=== PATIENT | male | born 1945 | race Caucasian/White ===

== ENCOUNTER 2018-05-10 09:31 | Emergency (ER) | payer MEDICARE, BC ==
--- NOTE | 2018-05-10 09:46 | UC ---
Throat Pain/Nasal Geo HPI - HPI Summary HPI Summary: 72 yo male presents with sinus pain/pressure/congestion, post nasal drip, and dry cough that started yesterday. He tells me that he has a PMHx of heart troubles requiring a pacemaker and that his has a lot of health issues and he is concerned about 1) himself getting worse 2) getting his ill. He has not taken anything OTC for his symptoms. He does not currently smoke, but he used to years ago. Denies fever, chills, SOB, chest pain. - History of Current Complaint Stated Complaint: COLD SYMP Time Seen by Provider: 05/10/18 09:39 Hx Obtained From: Patient Onset/Duration: Sudden Onset Severity: Mild Pain Intensity: 3 Pain Scale Used: 0-10 Numeric Cough: Nonproductive - Allergies/Home Medications Allergies/Adverse Reactions: Allergies Allergy/AdvReac Type Severity Reaction Status Date / Time No Known Allergies Allergy Verified 02/01/12 18:05 Home Medications: Home Medications Cholecalciferol (Vitamin D3) [Vitamin D3] 4,000 units PO DAILY 05/10/18 [ History Confirmed 05/10/18] Omeprazole 20 mg PO DAILY PRN 05/10/18 [History Confirmed 05/10/18] PMH/Surg Hx/FS Hx/Imm Hx Endocrine History: Dyslipidemia Cardiovascular History: Cardiac Disease, Hypertension, Pacemaker/ICD Respiratory History: COPD, Asthma - Surgical History Surgical History: Yes Surgery Procedure, Year, and Place: pacemaker and stent 2010; hernia surgery x 2 - Family History Known Family History: Positive: Cardiac Disease, Hypertension, Respiratory Disease - Social History Lives: With Family Alcohol Use: Occasionally Substance Use Type: None Smoking Status (MU): Former Smoker Review of Systems All Other Systems Reviewed And Are Negative: Yes Constitutional: Positive: Negative Skin: Positive: Negative Eyes: Positive: Negative ENT: Positive: Nasal Discharge, Sinus Congestion, Sinus Pain/Tenderness Respiratory: Positive: Cough Cardiovascular: Positive: Negative Gastrointestinal: Positive: Negative Neurovascular: Positive: Negative Neurological: Positive: Negative Psychological: Positive: Negative Physical Exam - Summary Physical Exam Summary: GENERAL: NAD. WDWN. No pain distress. SKIN: No rashes, sores, lesions, or open wounds. HEENT: Head: AT/NC Eyes: Conjunctiva clear without inflammation or discharge. Ears: Hearing grossly normal. TMs intact, no bulging, erythema, or edema. Nose: Nasal mucosa mildly swollen and erythematous without discharge. NTTP maxillary/frontal sinuses. Positive post nasal drip Throat: Posterior oropharynx without exudates, erythema, or tonsillar enlargement. Uvula midline. NECK: Supple. Nontender. No lymphadenopathy. CHEST: Mild wheezing throughout. No r/r. No accessory muscle use. Breathing comfortably and in no distress. CV: RRR. Pulses intact. Cap refill <2seconds NEURO: Alert. PSYCH: Age appropriate behavior. Triage Information Reviewed: Yes Vital Signs: Vital Signs: Temp Pulse Resp BP Pulse Ox 97.8 F 81 20 155/86 96 05/10/18 09:40 05/10/18 09:40 05/10/18 09:40 05/10/18 09:40 05/10/18 09:40 Vital Signs Reviewed: Yes Throat Pain/Nasal Course/Dx - Course Course Of Treatment: Sinusitis. His symptoms could very likely be viral and improve with time and OTC medications, however given his comorbidities and his 's immunocompromised status - pt prefers to be on anbx at this time. - Differential Dx/Diagnosis Provider Diagnosis: Sinusitis Discharge - Sign-Out/Discharge Documenting (check all that apply): Patient Departure All imaging exams completed and their final reports reviewed: No Studies - Discharge Plan Condition: Stable Disposition: HOME Prescriptions: DOXYcycline CAP(*) [DOXYcycline 100MG CAP(*)] 100 mg PO BID #14 cap Patient Education Materials: Sinusitis (ED) Referrals: Irlanda Choudhary RN [Primary Care Provider] - Additional Instructions: If you develop a fever, shortness of breath, chest pain, new or worsening symptoms - please call your PCP or go to the ED. Your blood pressure was high at todays visit. Please see your primary provider within 4 weeks for recheck and re-evaluation. - Billing Disposition and Condition Condition: STABLE Disposition: Home
[2018-05-10 09:51] VITALS: BP 155/86
== END 2018-05-10 10:05 | disposition home or self-care (01) ==
LOC: UCEAST 09:31
DX: J32.9 Chronic sinusitis, unspecified (principal); E78.5 Hyperlipidemia, unspecified; I25.10 Atherosclerotic heart disease of native coronary artery without angina pectoris; I10 Essential (primary) hypertension; Z95.810 Presence of automatic (implantable) cardiac defibrillator; Z79.01 Long term (current) use of anticoagulants; J44.9 Chronic obstructive pulmonary disease, unspecified; Z87.891 Personal history of nicotine dependence
CPT/HCPCS: 99212; G0463

== ENCOUNTER → 2019-02-12 07:21 | Day surgery (SDC) | payer MEDICARE, BC ==
[~2019-02-12 07:21] MED LIST: Buffered Lidocaine 1% SYRIN* 1 ML/SYRINGE INTRADERM ONE; Lactated Ringers 1000 ML Bag* 1,000 ML IV SCH; Lidocaine 1% w EPI 1:100,000* MDV 20 ML VIAL ONE; Midazolam* 1 MG/ML 2 ML VIAL (2 MG) ONE; Mineral Oil Sterile, TOPICAL* 25 ML BTL ONE; Propofol* 10 MG/ML 20 ML BTL ONE; ceFAZolin 2 GM in NS PREMIX(*) 2 GM/100 ML BAG IVPB ONE; fentaNYL* 50 MCG/ML 2 ML VIAL (100 MCG VIAL) ONE
[2019-02-12 12:54] VITALS: BP 126/70
== END | disposition home or self-care (01) ==
LOC: OR 07:21
PROVIDERS: ATTEND Plastic Surgery
DX: C44.319 Basal cell carcinoma of skin of other parts of face (principal); J44.9 Chronic obstructive pulmonary disease, unspecified; I48.0 Paroxysmal atrial fibrillation; I10 Essential (primary) hypertension; I25.10 Atherosclerotic heart disease of native coronary artery without angina pectoris; Z95.5 Presence of coronary angioplasty implant and graft; Z95.0 Presence of cardiac pacemaker; Z85.828 Personal history of other malignant neoplasm of skin; E78.5 Hyperlipidemia, unspecified; K21.9 Gastro-esophageal reflux disease without esophagitis; Z79.01 Long term (current) use of anticoagulants; Z87.891 Personal history of nicotine dependence
CPT/HCPCS: 88305; 88331; 88332; A9270-GY; J0690; J2250; J2704; J3010

== ENCOUNTER 2019-02-27 12:46 | Emergency (ER) | payer MEDICARE, BC ==
--- OUTSIDE RECORDS SUMMARY | 2019-02-27 12:55 | XMS REPORT | Continuity of Care Document ---
:1945 External Reference #:[id number] Author Name Irlanda Oneil M.D. (transmitted by agent of provider Alia Dan) Address [address] [place] [address] Care Team Providers Name Role Phone Anita Gregory N.P. 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 Onset: 03/03/2013 Atrial fibrillation Irlanda Oneil M.D. Onset: 03/03/2013 Benign essential hypertension Irlanda Oneil M.D. Onset: 03/03/2013 Pure hypercholesterolemia Irlanda Oneil M.D. Onset: 03/03/2013 Cardiac pacemaker in situ Irlanda Oneil M.D. Onset: 03/03/2013 Dyspnea Irlanda Oneil M.D. Onset: 03/03/2013 Chronic obstructive lung disease Irlanda Oneil M.D. Onset: 04/27/2014 Mixed hyperlipidemia Irlanda Oneil M.D. Onset: 10/17/2015 Paroxysmal atrial fibrillation Irlanda Oneil M.D. Onset: 10/17/2015 Social History Type Date Description Comments Sex Unknown Tobacco Use Start: Unknown End: Former Cigarette Smoker Unknown Smoking Status Reviewed: 12/29/18 Former Cigarette Smoker ETOH Use Denies alcohol use Tobacco Use Start: Unknown End: Patient is a former quit in 2009 Unknown smoker Recreational Drug Use Never Used Drugs Exercise Type/Frequency Does not exercise Allergies, Adverse Reactions, Alerts Active Allergies Reaction Severity Comments Date NKDA 04/02/2014 Bee Sting 03/03/2013 Medications Active Medications SIG Qnty Indications Ordering Date Provider Xopenex HFA 2 puffs as needed 1units R06.2 Irlanda Oneil, 03/16/2013 45mcg/Act M.D. Aerosol Sotalol HCL 1 and 1/2 tabs by 270tabs Irlanda Oneil, 10/08/2012 80mg mouth twice a day M.D. Tablets Amlodipine Besylate 1 by mouth every 90tabs Irlanda Oneil, 08/26/2012 5mg day M.D. Tablets Atorvastatin Calcium 1 tab by mouth at 90tabs Irlanda Oneil, 12/25/2011 bedtime M.D. 20mg Tablets Aspirin 1 po qd 30tabs Unknown 81mg Tablets DR Oxygen 2 l nc at bedtime Unknown Misc Advair Diskus Inhale One puff Unknown By Mouth Twice A 250-50mcg/Dose Day Aerosol Warfarin Sodium Take One Tablet Unknown 4mg By Mouth Every Tablets Day as Directed Immunizations Description No Information Available Vital Signs Date Vital Result Comment 12/29/2018 3:38pm Height 67.5 inches 5'7.50" Weight 197.00 lb with shoes Heart Rate 56 /min BP Systolic Sitting 112 mmHg Lue reg cuff BP Diastolic Sitting 70 mmHg Lue reg cuff BP Systolic Standing 120 mmHg Lue reg cuff BP Diastolic Standing 74 mmHg Lue reg cuff Respiratory Rate 16 /min BMI (Body Mass Index) 30.4 kg/m2 02/10/2018 2:29pm Height 67.5 inches 5'7.50" Weight 198.25 lb without shoes Heart Rate 80 /min BP Systolic Sitting 120 mmHg Rue reg cuff BP Diastolic Sitting 80 mmHg Rue reg cuff BP Systolic Standing 122 mmHg Rue reg cuff BP Diastolic Standing 80 mmHg Rue reg cuff Respiratory Rate 16 /min BMI (Body Mass Index) 30.6 kg/m2 Results Description No Information Available Procedures Date Code Description Status 12/29/2018 14555 Pace Maker Eval W/Iterative Adjment Dual Lead Completed 12/29/2018 79801 EKG Tracing & Interpretation Completed 11/25/2018 00867 Tangential Biopsy Of Skin, Single Lesion Completed 08/23/2015 24845993 Colonoscopy Completed Medical Devices Description No Information Available Encounters Type Date Location Provider Dx Diagnosis Office Visit 11/25/2018 [facility] Canelo Gomez MD L82.1 Other seborrheic 11:20a [place] keratosis L72.8 Other follicular cysts of the skin and subcutaneous tissue Z08 Encntr for follow-up exam after trtmt for malignant neoplasm Z85.828 Personal history of other malignant neoplasm of skin C44.319 Basal cell carcinoma of skin of other parts of face Assessments Date Code Description Provider 12/29/2018 I48.0 Paroxysmal atrial fibrillation Irlanda Oneil M.D. 12/29/2018 I48.0 Paroxysmal atrial fibrillation Ica Pacer Schedule 12/29/2018 Z95.0 Presence of cardiac pacemaker Irlanda Oneil M.D. 12/29/2018 Z95.0 Presence of cardiac pacemaker Ica Pacer Schedule 12/29/2018 I25.10 Atherosclerotic heart disease of cahto Irlanda Oneil M.D. coronary artery with 12/29/2018 R06.02 Shortness of breath Irlanda Oneil M.D. 12/29/2018 Z01.810 Encounter for preprocedural cardiovascular Irlanda Oneil M.D. examination 11/25/2018 L82.1 Other seborrheic keratosis Canelo Gomez MD 11/25/2018 L72.8 Other follicular cysts of the skin and Canelo Gomez MD subcutaneous tissue 11/25/2018 Z08 Encounter for follow-up examination after Canelo Gomez MD completed treatment for malignant neoplasm 11/25/2018 Z85.828 Personal history of other malignant neoplasm of Canelo Gomez MD skin 11/25/2018 C44.319 Basal cell carcinoma of skin of other parts of Canelo Gomez MD face Plan of Treatment Future Appointment(s):05/26/2019 11:20 am - Canelo Gomez MD at [facility] [place]/28/2019 - Irlanda Oneil M.D.I48.0 Paroxysmal atrial fibrillationComments:Going in and out quite a bit.Follow up:Refer to Dr Gifty Alexander (awaiting addition of this MD to referral list).Recommendations:option of a stronger medication (Tikosyn), but it would require admission to the hospital for 3-4 days. Option of getting an opinion from an EP MD- will make referral to [place].Z95.0 Presence of cardiac pacemakerFollow up:PO every 6 months. OV PUFFER TENDER 6 months OV MD annual.I25.10 Atherosclerotic heart disease of caht[place] coronary artery withFollow up:Release: [facility] 2019, lytes and lipids, if no lipids I need to order.R06.02 Shortness of breathComments:Sotalol could be making asthma worse, getting off this may help with breathing.Z01.810 Encounter for preprocedural cardiovascular examinationComments:OK to hold coumadin for Dr Leonard's procedure. Functional Status Description No Information Available Mental Status Description No Information Available Referrals Description No Information Available
[2019-02-27 12:57] VITALS: BP 112/66
--- NOTE | 2019-02-27 13:03 | UC ---
Throat Pain/Nasal Geo HPI - HPI Summary HPI Summary: 73 yo male presents with sore throat. He tells me that for the last 2 days he has had a sore throat. He is concerned because his son was around someone else who had strep -- son himself did not have strep. Nothing OTC for symptoms. Denies fever, chills, sinus symptoms, cough, rash. He is eating, drinking, and tolerating po well - History of Current Complaint Chief Complaint: UCGeneralIllness Stated Complaint: SORE THROAT Time Seen by Provider: 02/27/19 13:02 Hx Obtained From: Patient Onset/Duration: Sudden Onset Severity: Mild Pain Intensity: 2 Pain Scale Used: 0-10 Numeric - Allergies/Home Medications Allergies/Adverse Reactions: Allergies Allergy/AdvReac Type Severity Reaction Status Date / Time BEE STINGS Allergy Anaphylatic Uncoded 02/27/19 12:57 Shock PMH/Surg Hx/FS Hx/Imm Hx Cardiovascular History: Cardiac Disease, Pacemaker/ICD - Surgical History Surgical History: Yes Surgery Procedure, Year, and Place: Pacemaker and Coronary Stent 2010. Hernia surgery x 2 - Family History Known Family History: Positive: Cardiac Disease, Hypertension, Respiratory Disease - Social History Lives: With Family Alcohol Use: None Substance Use Type: None Smoking Status (MU): Former Smoker Amount Used/How Often: 1 ppd for 40 years When Did the Patient Quit Smoking/Using Tobacco: 2010 Household Exposure Type: Cigarettes Review of Systems All Other Systems Reviewed And Are Negative: No Constitutional: Positive: Negative Skin: Positive: Negative Eyes: Positive: Negative ENT: Positive: Sore Throat Respiratory: Positive: Negative Cardiovascular: Positive: Negative Gastrointestinal: Positive: Negative Neurological: Positive: Negative Psychological: Positive: Negative Physical Exam - Summary Physical Exam Summary: GENERAL: NAD. WDWN. No pain distress. SKIN: No rashes, sores, lesions, or open wounds. HEENT: Head: AT/NC Eyes: EOM intact. Conjunctiva clear without inflammation or discharge. Ears: Hearing grossly normal. TMs intact, no bulging, erythema, or edema. Nose: Nasal mucosa pink and moist. NTTP maxillary and frontal sinus. Throat: Posterior oropharynx without exudates, erythema, or tonsillar enlargement. Uvula midline. NECK: Supple. Nontender. No lymphadenopathy. CHEST: CTAB. No accessory muscle use. Breathing comfortably and in no distress. CV: Pulses intact. Cap refill <2seconds NEURO: Alert. PSYCH: Age appropriate behavior. Triage Information Reviewed: Yes Vital Signs: Initial Vital Signs Temp 98 F 02/27/19 12:54 Pulse 97 02/27/19 12:54 Resp 16 02/27/19 12:54 BP 112/66 02/27/19 12:54 Pulse Ox 98 02/27/19 12:54 Laboratory Tests 02/27/19 13:10 Group A Strep Rapid Negative Vital Signs Reviewed: Yes Throat Pain/Nasal Course/Dx - Course Course Of Treatment: POC strep negative. Suspect viral illness. Advised to try OTC supportive/conservative treatment and be rechecked if symptoms do not improve - Differential Dx/Diagnosis Provider Diagnosis: Pharyngitis Discharge ED - Sign-Out/Discharge Documenting (check all that apply): Patient Departure All imaging exams completed and their final reports reviewed: No Studies - Discharge Plan Condition: Stable Disposition: HOME Patient Education Materials: Pharyngitis (ED) Referrals: Anita Gregory [Primary Care Provider] - Additional Instructions: STREP TEST NEGATIVE TODAY Your symptoms are likely from a viral infection. Viral infections do not respond to antibiotics and are limited to the treatment of symptoms. Viral infections typically run their course in 7-10 days. Drink plenty of fluids, especially if you are running any fever. Use salt water gargles several times a day. Take over the counter acetaminophen (Tylenol) or ibuprofen (Advil, Motrin) according to directions as needed for pain or fever. You may also use Chloraseptic spray or Cepacol lonzenges according to directions which contain a numbing medication and can provide some temporary relief from a sore throat. Return here or follow up with your primary care provider in 7 days if symptoms persist. - Billing Disposition and Condition Condition: STABLE Disposition: Home
== END 2019-02-27 13:32 | disposition home or self-care (01) ==
LOC: UCEAST 12:46
DX: J02.9 Acute pharyngitis, unspecified (principal); Z87.891 Personal history of nicotine dependence; Z91.030 Bee allergy status; Z95.5 Presence of coronary angioplasty implant and graft; Z95.0 Presence of cardiac pacemaker
CPT/HCPCS: 87651; 99211; G0463